=== PATIENT | male | born 1995 | race American Indian/Alaskan Native ===

== ENCOUNTER 2018-05-26 15:53 | Emergency (ER) | payer BC ==
[2018-05-26 15:59] VITALS: BP 106/68; PULSE 55; RESP 18; TEMP 98.6; O2SAT 99
[2018-05-26] MEDS ORDERED: cefTRIAXone 250 MG, Water For Injection 20 ML IM STA (16:14)
--- NOTE | 2018-05-26 16:15 | C.PDOC ---
History Of Present Illness 23 y/o male presents to ED requesting to be tested for STD. Patient states partner recently told him she was diagnosed with Chlamydia and advised he be tested too. Patient admits to tingling sensation when urinating and denies penile discharge, hematuria or any other complaints at this time. Chief Complaint (Nursing): Medical Clearance History Per: Patient History/Exam Limitations: no limitations Onset/Duration Of Symptoms: Days Current Symptoms Are (Timing): Still Present Past Medical History Reviewed: Historical Data, Nursing Documentation, Vital Signs Vital Signs: Last Vital Signs Temp 98.6 F 05/26/18 15:56 Pulse 55 L 05/26/18 15:56 Resp 18 05/26/18 15:56 BP 106/68 05/26/18 15:56 Pulse Ox 99 05/26/18 16:28 - Medical History PMH: No Chronic Diseases Surgical History: No Surg Hx - [facility] Procedures APPLICATION OF SPLINT (03/03/15) TETANUS TOXOID ADMINIST (03/03/15) Family History: States: No Known Family Hx - Social History Hx Tobacco Use: Yes Hx Alcohol Use: Yes Hx Substance Use: No - Immunization History Hx Tetanus Toxoid Vaccination: No Hx Influenza Vaccination: No Hx Pneumococcal Vaccination: No Review Of Systems Constitutional: Negative for: Fever, Chills Genitourinary: Positive for: Other (tingling when urinating). Negative for: Dysuria, Hematuria, Penile Discharge Skin: Negative for: Rash Physical Exam - Physical Exam Appears: Non-toxic, No Acute Distress Skin: Warm, Dry, No Rash Head: Atraumatic, Normacephalic Eye(s): bilateral: Normal Inspection Oral Mucosa: Moist Neck: Normal ROM, Supple Cardiovascular: Rhythm Regular Respiratory: Normal Breath Sounds, No Rales, No Rhonchi, No Wheezing Gastrointestinal/Abdominal: Soft, No Tenderness, No Guarding, No Rebound Neurological/Psych: Oriented x3, Normal Speech ED Course And Treatment O2 Sat by Pulse Oximetry: 99 (RA) Pulse Ox Interpretation: Normal Medical Decision Making Medical Decision Making: high risk exposure partner + Chlamydia by hx. mild tingling- will treat empirically regardless. Disposition Doctor Will See Patient In The: Office Counseled Patient/Family Regarding: Studies Performed, Diagnosis - Disposition Referrals: [facility] [Outside] [facility] [Outside] [facility] [Outside] Disposition: HOME/ ROUTINE Disposition Time: 16:16 Condition: GOOD Additional Instructions: you were treated empirically for GC/Chlamydia with Rocephin 250 mg by intra- muscular injection and Azithromycin 1000 mg by mouth This is an ENTIRE treatment and no more antibiotics required at this time. No Sexual relations for 1 week Notify sexual partners to get tested too Follow-up in our [facility] to continue STD evaluation: Syphilis, hepatitis, HIV, etc Instructions: Urethritis (DC) Forms: [employer] (Welsh) - Clinical Impression Clinical Impression: Urethritis - Scribe Statement The provider has reviewed the documentation as recorded by the Nataliaibjose Wilson All medical record entries made by the Ashtyn were at my direction and personally dictated by me. I have reviewed the chart and agree that the record accurately reflects my personal performance of the history, physical exam, medical decision making, and the department course for this patient. I have also personally directed, reviewed, and agree with the discharge instructions and disposition.
[2018-05-26] MEDS ORDERED: cefTRIAXone 250 MG, Water For Injection 1 ML IM STA (16:34)
[2018-05-26 18:52] LABS: SQUAMOUS EPITHIAL < 1 /hpf (0-5); URINE BACTERIA FEW (<OCC); URINE BILIRUBIN NEGATIVE (NEGATIVE); URINE BLOOD NEGATIVE (NEGATIVE); URINE COLOR Yellow (YELLOW); URINE GLUCOSE (UA) NORMAL (Normal); URINE LEUKOCYTE ESTERASE 1+ Leu/uL (Negative); URINE PROTEIN NEGATIVE (NEGATIVE)
[2018-05-26 18:53] LABS: URINE CLARITY HAZY (Clear)
== END 2018-05-26 17:18 | disposition home or self-care (01) ==
LOC: C.ER 15:53
DX: N34.2 Other urethritis (principal)
CPT/HCPCS: 81001; 87086; 87491; 87591; 96372; 99282; J0696